=== PATIENT | male | born 1965 ===

== ENCOUNTER 2024-06-08 09:54 | Day surgery (SDC) | payer BC ==
[~2024-06-08 09:54] MED LIST: Metoclopramide 10 MG/2 ML SDV IV PRN; Sodium Chloride 0.9% 1,000 ML IV SCH
[2024-06-08] MEDS: Sodium Chloride 0.9% 1,000 ML IV SCH (11:08)
[2024-06-08] MEDS ORDERED: Propofol 500 MG/50 ML SDV ONE (11:30)
== END 2024-06-08 13:05 | disposition home or self-care (01) ==
LOC: LB.SDS 09:54
PROVIDERS: ATTEND Surgery
DX: Z12.11 Encounter for screening for malignant neoplasm of colon (principal); D12.3 Benign neoplasm of transverse colon; D12.5 Benign neoplasm of sigmoid colon; K57.30 Diverticulosis of large intestine without perforation or abscess without bleeding; J45.909 Unspecified asthma, uncomplicated; E78.00 Pure hypercholesterolemia, unspecified; Z79.899 Other long term (current) drug therapy; Z80.0 Family history of malignant neoplasm of digestive organs
CPT/HCPCS: 45385; J2704; J7030